=== PATIENT | female | born 1980 | race Caucasian/White ===

== ENCOUNTER 2023-03-25 09:44 | Outpatient (CLI) | payer BC ==
--- NOTE | 2023-03-28 11:46 | Mammography Report ---
BILATERAL DIGITAL SCREENING MAMMOGRAM 3D/2D: 03/25/2023 CLINICAL: Routine screening. Baseline exam. No prior exams were available for comparison. Both breasts are heterogeneously dense, which may obscure small masses (category c / 51-75% glandular tissue). There is an asymmetry in the right breast middle depth inferior region seen on the mediolateral obliq ue view only. There is an asymmetry in the left breast middle depth inferior region seen on the mediolateral obliqu e view only. No other significant masses or calcifications are seen in either breast. IMPRESSION: INCOMPLETE: NEEDS ADDITIONAL IMAGING EVALUATION The asymmetry in the right breast middle depth inferior region seen on the mediolateral oblique view only is indeterminate. Additional views with possible ultrasound are recommended. The asymmetry in the left breast middle depth inferior region seen on the mediolateral oblique view o nly is indeterminate. Additional views with possible ultrasound are recommended. Based on Tyrer-Cuzick model (a risk assessment model), the patient's lifetime risk is 20.5% and her 1 0 year risk is 2.7%. If a patient has an elevated risk, a more comprehensive evaluation should be con sidered and/or a referral to a genetic counselor. The [employer], [employer], and NCCN Guidelines advise the consideration of Breast MRI as an adjunct to screening mammog jb in patients whose "Lifetime risk to develop breast cancer" is 20% or higher. This exam was interpreted at Station ID: [id number]. NOTE: For mammograms, a report in lay terms will be sent to the patient. Approximately 15% of breast malignancies will not be visualized mammographically. In the management of a palpable breast mass, a negative mammogram must not discourage biopsy of a clinically suspicious lesion. Electronically Signed By: Oneal Mascorro M.D. lc/:03/25/2023 10:49:37 ACR BI-RADS Category 0: Incomplete 3340F PARENCHYMAL PATTERN: (D) - The breast(s) demonstrate(s) heterogeneously dense fibroglandular parenchy ma. BI-RADS CATEGORY: (0) - 0 Mammo and [place] [id number] Immediate follow-up LATERALITY: (B)
== END 2023-03-25 09:45 | disposition home or self-care (01) ==
LOC: DI 09:44 → EDBD 09:44 → DI 09:45
PROVIDERS: ATTEND Nurse Practitioner
DX: Z12.31 Encounter for screening mammogram for malignant neoplasm of breast (principal); R92.8 Other abnormal and inconclusive findings on diagnostic imaging of breast; R92.333 Mammographic heterogeneous density, bilateral breasts

== ENCOUNTER 2023-04-21 09:14 | Outpatient (CLI) | payer BC ==
--- NOTE | 2023-04-21 15:57 | Mammography Report ---
BILATERAL DIGITAL DIAGNOSTIC MAMMOGRAM 3D/2D: 04/21/2023 CLINICAL: Patient returns today to evaluate asymmetries in bilateral breasts. Comparison is made to exam dated: 03/25/2023 mammogram - [facility]. Both breasts are heterogeneously dense, which may obscure small masses (category c / 51-75% glandular tissue). There is an asymmetry in the right breast middle depth inferior region seen on the mediolateral obliq ue view only. There is an asymmetry in the left breast middle depth inferior region seen on the mediolateral obliqu e view only. No other significant masses or calcifications are seen in either breast. IMPRESSION: INCOMPLETE: NEEDS ADDITIONAL IMAGING EVALUATION The asymmetry in the right breast middle depth inferior region seen on the mediolateral oblique view only is indeterminate. An ultrasound is recommended. The asymmetry in the left breast middle depth inferior region seen on the mediolateral oblique view o nly is indeterminate. An ultrasound is recommended. Based on the Tyrer Cuzick model (a risk assessment model) the patient's lifetime risk is 13.9% and he r 10 year risk is 1.8%. According to the ACR, ACS, and NCCN guidelines, an annual breast MRI exam demetrice ng with mammogram is recommended if the patients lifetime risk is 20% or greater. This exam was interpreted at Station ID: [id number]. NOTE: For mammograms, a report in lay terms will be sent to the patient. Approximately 15% of breast malignancies will not be visualized mammographically. In the management of a palpable breast mass, a negative mammogram must not discourage biopsy of a clinically suspicious lesion. Electronically Signed By: Oneal Mascorro M.D. lc/:04/21/2023 10:06:10 ACR BI-RADS Category 0: Incomplete 3340F PARENCHYMAL PATTERN: (D) - The breast(s) demonstrate(s) heterogeneously dense fibroglandular parnahun smith. BI-RADS CATEGORY: (0) - 0 Ultrasound [id number] Immediate follow-up LATERALITY: (B)
--- NOTE | 2023-04-21 15:57 | Ultrasound Report ---
LIMITED ULTRASOUND OF RIGHT BREAST: 04/21/2023 CLINICAL: Patient returns today to evaluate asymmetries in bilateral breasts. Comparison is made to exams dated: 04/21/2023 ultrasound, 04/21/2023 mammogram, and 03/25/2023 mammogram - [facility]. Ultrasound of the right breast 5-7 o'clock region was performed. Phillips scale images of the real-time examination were reviewed. No significant abnormalities were seen sonographically in the right breast. IMPRESSION: PROBABLY BENIGN There is no abnormality seen in the right breast to correspond with the mammography finding. A follow-up mammogram in 12 months is recommended. This exam was interpreted at Station ID: [id number]. Electronically Signed By: Oneal Mascorro M.D. lc/:04/21/2023 10:07:21 Ultrasound BI-RADS: 3 Probably benign BI-RADS CATEGORY: (3) - 3 Mammogram [id number] 12 month follow-up LATERALITY: (B)
--- NOTE | 2023-04-21 15:57 | Ultrasound Report ---
LIMITED ULTRASOUND OF LEFT BREAST: 04/21/2023 CLINICAL: Patient returns today to evaluate asymmetries in bilateral breasts. Comparison is made to exams dated: 04/21/2023 mammogram and 03/25/2023 mammogram - [facility]. Ultrasound of the left breast 5-7 o'clock region was performed. Phillips scale images of the real-time examination were reviewed. No significant abnormalities were seen sonographically in the left breast. IMPRESSION: PROBABLY BENIGN There is no abnormality seen in the left breast to correspond with the mammography finding. A follow-up mammogram in 12 months is recommended. This exam was interpreted at Station ID: [id number]. Electronically Signed By: Oneal Mascorro M.D. lc/:04/21/2023 10:06:53 Ultrasound BI-RADS: 3 Probably benign BI-RADS CATEGORY: (3) - 3 Mammogram [id number] 12 month follow-up LATERALITY: (B)
== END 2023-04-21 09:15 | disposition home or self-care (01) ==
LOC: DI 09:14
PROVIDERS: ATTEND Nurse Practitioner
DX: R92.333 Mammographic heterogeneous density, bilateral breasts (principal); R92.8 Other abnormal and inconclusive findings on diagnostic imaging of breast

== ENCOUNTER 2023-06-02 10:00 | Day surgery (SDC) | payer BC ==
[2023-06-02] MEDS: LACTATED RINGERS 1,000 ML IV ONE (10:15)
[2023-06-02 10:22] LABS: HCG UR QUAL NEGATIVE
[2023-06-02] MEDS ORDERED: BUPIVACAINE 0.25% PF 30 ML VIAL ONE (11:11)
[2023-06-02] MEDS ORDERED: PROPOFOL 200 MG/20 ML VIAL IVP ONE (11:12)
[2023-06-02] MEDS ORDERED: fentaNYL 100 MCG/2 ML VIAL ONE ×2 (11:12→13:24)
[2023-06-02] MEDS ORDERED: MIDAZOLAM 2 MG/2 ML VIAL ONE (11:12)
--- NOTE | 2023-06-02 11:19 | HISTORY & PHYSICAL EXAMINATION ---
Chief Complaint - Chief Complaint Chief Complaint: hernia above umbilicus History of Present Illness - History Obtained From Records Reviewed: yes History obtained from: pt Exam Limitations: none - History of Present Illness HPI Comment/Other: history lap jake and now symptomatic hernia at prior umbilical incision area History - Past Medical History Cardiovascular: reports: Hypertension, High cholesterol Respiratory: reports: None Endocrine/Autoimmune: reports: None GI: reports: Chronic constipation : reports: None HEENT: reports: Other Psych: reports: Depression Musculoskeletal: reports: None Derm: reports: None MRSA Hx?: No - Past Surgical History General: reports: Cholecystectomy /[employer]LYST: reports: section Meds/Allgy - Home Medications Home Medications: Ambulatory Orders Medication Instructions Recorded Confirmed amLODIPine [Norvasc] 10 mg PO DAILY 05/30/23 06/02/23 buPROPion [Wellbutrin Xl] 150 mg PO DAILY 05/30/23 06/02/23 metFORMIN [Glucophage] 500 mg PO BIDWM 05/30/23 06/02/23 - Allergies Allergies/Adverse Reactions: Allergies Allergy/AdvReac Type Severity Reaction Status Date / Time No Known Drug Allergies Allergy Verified 05/30/23 10:37 Review of Systems - Other Findings Other Findings: 10 pt ros as above otherwise unremarkable Exam - Vital Signs Vital Signs: Vital Signs x48h Temp Pulse Resp BP Pulse Ox 06/02/23 10:22 36.7 C 83 15 145/100 H 99 - Physical Exam General Appearance: positive: No acute distress, Alert Eyes Bilateral: positive: PERRL, EOMI ENT: positive: No signs of dehydration Neck: positive: No JVD Respiratory: positive: No respiratory distress, Breath sounds nml Cardiovascular: positive: Regular rate & rhythm Abdomen: positive: Other (2 to 3 cm incisional hernia near the umbilicus) Neurologic/Psychiatric: positive: Oriented x3 Conclusion/Plan - Problem List (1) Incisional hernia Conclusion/Plan: plan open repair with mesh parq held and consent obtained
[2023-06-02] MEDS ORDERED: DEXAMETHASONE 4 MG/ML VIAL ONE (11:54)
[2023-06-02] MEDS ORDERED: ONDANSETRON 4 MG/2 ML VIAL ONE (11:54)
[2023-06-02] MEDS ORDERED: HYDROmorphone 1 MG/ML CARPUJECT ONE (12:12)
[2023-06-02] MEDS ORDERED: PHENYLEPHRINE HCL 0.5 MG/5 ML AMPULE ONE (12:30)
[2023-06-02] MEDS: BUPIVACAINE 0.25% PF 30 ML VIAL SUBQ ONE (12:45)
[2023-06-02] MEDS: LACTATED RINGERS 400 ML IV ONE ×2 (13:13→13:49)
[2023-06-02] MEDS ORDERED: ONDANSETRON 4 MG/2 ML VIAL IVP PRN ×2 (13:17→13:29)
--- NOTE | 2023-06-02 13:25 | OPERATIVE REPORT ---
Operative Report - General Procedure Date: 06/02/23 Planned Procedure: open repair incisional hernia with mesh Pre-Op Diagnosis: incisional hernia Procedure Performed: open repair incsional hernia with mesh Post Op Diagnosis: incisional hernia 3 x 4 cm - Procedure Note Primary Surgeon: don willis Anesthesia Technique: General LMA, Local Pathology: none Estimated Blood Loss (mL): 2 Drain/Tube Type: Other (none) Indications: painful hernia bulge at and above her umbilicus Findings: 3 to 4 cm wide x 8 cm tall polypropylene mesh preperitoneal Complications: none - Other Other Information/Narrative: The patient was properly identified brought to the operating room and placed in supine position. Laryngeal mask anesthesia was induced. Sequential compression devices were placed. She was prepped and draped in a sterile fashion and given preoperative antibiotics. Local anesthetic was given throughout the procedure. She has history of laparoscopic cholecystectomy and supraumbilical curvilinear incision. She has an umbilical hernia and an incisional hernia cephalad of her umbilicus. A 2 cm vertical incision was made cephalad of her umbilicus and extended left lateral through the old scar. Dissection proceeded sharply. Umbilical skin was excised away from hernia sac. Subcutaneous tissue was mobilized back away from fascial defect edge. She had significant scar tissue cephalad of her umbilicus. Scar tissue and peritoneum was carefully released along the edge of thicker fascia. A hole in the peritoneum was then closed with a running 3-0 Vicryl suture. The preperitoneal space was developed with blunt dissection. Hemostasis was assured. Total defect measured approximately 3 x 4 cm. 3 skin was closed with a running 4-0 Monocryl subcuticular suture. Dressing was applied. She tolerated the procedure well. -4 cm by 8 cm tall wide polypropylene mesh was placed preperitoneal and secured with approximately 10 interrupted 0 Ethibond sutures. Fascia was closed over the mesh with 3 point interrupted 0 Ethibond sutures. The mesh lay in good position without tension. Subcutaneous tissue was closed with interrupted 2-0 Vicryl suture. Umbilical skin was tacked back down to fascia with interrupted 2-0 Vicryl suture. Buried interrupted subdermal 3-0 Vicryl sutures were then placed.
[2023-06-02] MEDS ORDERED: ATROPINE ABBOJECT 1 MG/10 ML SYRINGE IVP PRN (13:29)
[2023-06-02] MEDS ORDERED: NALOXONE 0.4 MG/ML VIAL IVP PRN (13:29)
[2023-06-02] MEDS ORDERED: MORPHINE 2 MG/ML CARPUJECT IVP PRN (13:29)
[2023-06-02] MEDS: fentaNYL 100 MCG/2 ML VIAL IVP PRN (13:34)
[2023-06-02] MEDS ORDERED: HYDROmorphone 0.5 MG/0.5 ML SYRINGE ONE ×3 (13:43→14:59)
[2023-06-02] MEDS: HYDROmorphone 0.5 MG/0.5 ML SYRINGE IVP PRN ×2 (13:46→14:11)
[2023-06-02] MEDS ORDERED: LACTATED RINGERS 1,000 ML IV SCH (14:00)
[2023-06-02] MEDS ORDERED: HYDROcod/ACETAM 5/325 MG TABLET ONE (14:09)
[2023-06-02] MEDS: HYDROcod/ACETAM 5/325 MG TABLET PO PRN (14:11)
[2023-06-02] MEDS ORDERED: KETOROLAC 30 MG/ML VIAL ONE (15:34)
[2023-06-02] MEDS ORDERED: ACETAMINOPHEN 325 MG TABLET PO ONE (15:34)
[2023-06-02 15:42] VITALS: BP 126/77; O2SAT 96
--- NOTE | 2023-06-02 15:42 | ANESTHESIA POST OP EVALUATION ---
Anesthesia Post Eval - Post Anesthesia Eval Vitals: Last Vital Signs Temp 36.7 C 06/02/23 15:30 Pulse 73 06/02/23 15:30 Resp 16 06/02/23 15:30 BP 126/77 06/02/23 15:30 Pulse Ox 96 06/02/23 15:30 O2 Flow Rate CV Function Including HR & BP: Stable Pain Control: Additional Therapies Ordered Nausea & Vomiting: Negative Mental Status: Baseline Respiratory Status: Airway Patent Hydration Status: Satisfactory Anesthesia Complications: None
--- NOTE | 2023-06-02 15:42 | ANESTHESIA ---
Pre-Anesthesia VS, & Labs - Diagnosis Incisional hernia - Procedure open incisional hernia repair with mesh Vital Signs: Temp Pulse Resp BP Pulse Ox O2 Flow Rate 36.7 C 73 16 126/77 96 06/02/23 15:30 06/02/23 15:30 06/02/23 15:30 06/02/23 15:30 06/02/23 15:30 Height: 5 ft 7 in Weight (kg): 88.9 kg Body Mass Index: 30.7 BMI Classification: Obese - NPO >8 hours - Is Patient ?: No Home Medications and Allergies Home Medications: Ambulatory Orders amLODIPine [Norvasc] 10 mg PO DAILY 05/30/23 buPROPion [Wellbutrin Xl] 150 mg PO DAILY 05/30/23 metFORMIN [Glucophage] 500 mg PO BIDWM 05/30/23 Active Medications Hydrocodone Bitart/Acetaminophen (Hydrocod/Acetam 5/325 Mg Tablet) 1 tab PO Q4HR PRN PRN Reason: Moderate Pain (Level 4-6) Last Admin: 06/02/23 14:11 Dose: 1 tab Hydromorphone HCl (Hydromorphone 0.5 Mg/0.5 Ml Syringe) 0.5 mg IVP Q30M PRN PRN Reason: Severe Breakthrough pain(7-10) Last Admin: 06/02/23 15:01 Dose: 0.5 mg Ondansetron HCl (Ondansetron 4 Mg/2 Ml Vial) 4 mg IVP Q6HR PRN PRN Reason: Nausea / Vomiting amLODIPine [Norvasc] 10 mg PO DAILY 05/30/23 buPROPion [Wellbutrin Xl] 150 mg PO DAILY 05/30/23 metFORMIN [Glucophage] 500 mg PO BIDWM 05/30/23 Allergies/Adverse Reactions: Allergies Allergy/AdvReac Type Severity Reaction Status Date / Time No Known Drug Allergies Allergy Verified 06/02/23 13:02 Anes History & Medical History - Anesthetic History Anesthesia Complications: reports: No previous complications - Medical History Cardiovascular: reports: Hypertension, High cholesterol Pulmonary: reports: None Gastrointestinal: reports: Chronic constipation Urinary: reports: None Neuro: reports: None Musculoskeletal: reports: None Endocrine/Autoimmune: reports: None Skin: reports: None Smoking Status: Never smoker Psychosocial: reports: No issues indicated History of Cancer?: No - Surgical History General: reports: Cholecystectomy Gynecologic: reports: section Exam General: Alert, Oriented x3, Cooperative, No acute distress Dental: WNL Mouth Openin Fingerbreadth Neck Mobility: Normal Mallampati classification: II Thyromental Distance: 4-6 cm Mental/Cognitive Status: Alert/Oriented X3, Normal for patient Plan Anesthesia Type: General Consent for Procedure(s) Verified and Reviewed: Yes Code Status: Attempt Resuscitation ASA classification: 2-Mild systemic disease Is this case an emergency?: No
[2023-06-02] MEDS: ACETAMINOPHEN 325 MG TABLET PO ONE (15:43)
[2023-06-02] MEDS: KETOROLAC 15 MG/ML VIAL IVP STA (15:43)
== END 2023-06-02 10:01 | disposition home or self-care (01) ==
LOC: SDS 10:00
PROVIDERS: ATTEND Surgery
PROC: 0WUF0JZ Supplement Abdominal Wall with Synthetic Substitute, Open Approach (ICD-10-PCS; principal; 2023-06-02 11:30)
DX: K43.2 Incisional hernia without obstruction or gangrene (principal); K42.9 Umbilical hernia without obstruction or gangrene; I10 Essential (primary) hypertension; E66.9 Obesity, unspecified; Z68.30 Body mass index [BMI] 30.0-30.9, adult
CPT/HCPCS: 49593; 81025; A9270; C1781; J1170; J2372; J7120